=== PATIENT | female | born 1975 | race Caucasian/White ===

== ENCOUNTER → 2023-05-14 09:52 | Outpatient (REF) | payer BC, SELFPAY | LOC: WDC 09:52 | PROVIDERS: ATTENDING PHYSICIAN Nurse Practitioner Adult Health | DX: R92.2 Inconclusive mammogram (principal); R92.8 Other abnormal and inconclusive findings on diagnostic imaging of breast | CPT/HCPCS: 76641 ==

== ENCOUNTER → 2023-11-16 19:12 | Outpatient (REF) | payer BC, SELFPAY | LOC: WDC 19:12 | PROVIDERS: ATTENDING PHYSICIAN Nurse Practitioner Adult Health; FAMILY PHYSICIAN Physician Assistant Medical | DX: Z12.31 Encounter for screening mammogram for malignant neoplasm of breast (principal) | CPT/HCPCS: 77063; 77067 ==

== ENCOUNTER → 2024-11-16 19:35 | Outpatient (REF) | payer BC, SELFPAY | LOC: WDC 19:35 | PROVIDERS: ATTENDING PHYSICIAN Nurse Practitioner Adult Health | DX: Z12.31 Encounter for screening mammogram for malignant neoplasm of breast (principal); Z80.3 Family history of malignant neoplasm of breast; R92.2 Inconclusive mammogram | CPT/HCPCS: 77063; 77067 ==